=== PATIENT | female | born 1950 | race Caucasian/White ===

== ENCOUNTER 2017-08-30 07:49 | Inpatient (IN) | payer OTHER ==
[2017-08-30] MEDS: SOD CHLORIDE 0.9% 1,000 ML IV ×4 (08:31→21:19)
[2017-08-30 08:34] LABS: ADD MAN DIFF? NO
[2017-08-30 08:35] LABS: WHITE BLOOD COUNT 5.1 10^3/ul (4.8-10.8)
[2017-08-30 08:35] LABS: ABNORMAL IP MESSAGE 1; BASOPHILS % 0.4 % (0.0-2.0); EOSINOPHILS % 0.4 % (0.0-7.0); HEMATOCRIT 17.5 % (37.0-47.0); LYMPHOCYTES # 1.3 10^3/ul (0.8-2.9); LYMPHOCYTES % 25.4 % (15.0-51.0); MEAN CORPUSCULAR HEMOGLOBIN 31.3 pg (29.0-33.0); MEAN CORPUSCULAR HGB CONC 32.6 g/dl (32.0-37.0); MEAN CORPUSCULAR VOLUME 96.2 fl (82.0-101.0); MEAN PLATELET VOLUME 9.9 fl (7.4-10.4); MONOCYTE # 0.4 10^3/ul (0.3-0.9); MONOCYTES % 8.4 % (0.0-11.0); NEUTROPHIL # 3.3 10^3/ul (1.6-7.5); NEUTROPHILS % 64.4 % (39.0-77.0); PLATELET COUNT 181 10^3/UL (140-415); RED BLOOD COUNT 1.82 10^6/ul (4.20-5.40)
[2017-08-30 08:40] LABS: POSITIVE DIFF @See below
[2017-08-30 08:41] LABS: HEMOGLOBIN 5.7 g/dl (12.0-16.0); PATH REVIEW? YES
[2017-08-30 08:55] LABS: ALANINE AMINOTRANSFERASE 25 IU/L (13-69); ALBUMIN 3.2 g/dl (3.3-4.9); ALBUMIN/GLOBULIN RATIO 1.45; ALKALINE PHOSPHATASE 46 IU/L (42-121); ANION GAP 10 (8-16); ASPARTATE AMINO TRANSFERASE 22 IU/L (15-46); BILIRUBIN,INDIRECT 0.1 mg/dl (0-1.1); BILIRUBIN,TOTAL 0.1 mg/dl (0.2-1.3); BLOOD UREA NITROGEN 19 mg/dl (7-20); CALCIUM 8.5 mg/dl (8.4-10.2); CARBON DIOXIDE 28 mmol/L (21-31); CHLORIDE 107 mmol/L (97-110); CREATININE 0.58 mg/dl (0.44-1.00); GLUCOSE 116 mg/dl (70-220); LIPASE 68 U/L (23-300); POTASSIUM 3.7 mmol/L (3.5-5.1); SODIUM 141 mmol/L (135-144); TOTAL PROTEIN 5.4 g/dl (6.1-8.1)
[2017-08-30 09:00] LABS: INR 0.96; PARTIAL THROMBOPLASTIN TIME 24.2 Sec (25.0-35.0); PROTIME 12.9 Sec (11.9-14.9)
[2017-08-30 09:07] LABS: TROPONIN-I < 0.012 ng/ml (0.00-0.12)
[2017-08-30] MEDS ORDERED: ONDANSETRON 4 MG INJ IV (11:30)
[2017-08-30] MEDS ORDERED: NACL 0.9% 3 ML SYG IV (11:30)
[2017-08-30] MEDS: ACETAMINOPHEN 325 MG TAB PO (11:32)
[2017-08-30] MEDS: PANTOPRAZOLE IV 80 MG in SOD CHLORIDE 0.9% 100 ML IVPB (11:51)
[2017-08-30 12:41] LABS: FREE T4 (FREE THYROXINE) 1.37 ng/dl (0.78-2.44)
[2017-08-30] MEDS: PANTOPRAZOLE IV 80 MG in SOD CHLORIDE 0.9% 100 ML IV ×2 (12:58→22:55)
[2017-08-30 14:26] LABS: IMMEDIATE SPIN CROSSMATCH 1 4
[2017-08-30 17:59] LABS: HEMATOCRIT 20.6 % (37.0-47.0)
[2017-08-30 21:09] LABS: ADD MAN DIFF? NO
[2017-08-30 21:11] LABS: ABNORMAL IP MESSAGE 1; BASOPHILS % 0.4 % (0.0-2.0); EOSINOPHILS # 0.1 10^3/ul (0.0-0.5); EOSINOPHILS % 1.6 % (0.0-7.0); HEMATOCRIT 20.7 % (37.0-47.0); LYMPHOCYTES # 1.4 10^3/ul (0.8-2.9); LYMPHOCYTES % 27.6 % (15.0-51.0); MEAN CORPUSCULAR HEMOGLOBIN 30.9 pg (29.0-33.0); MEAN CORPUSCULAR HGB CONC 33.3 g/dl (32.0-37.0); MEAN CORPUSCULAR VOLUME 92.8 fl (82.0-101.0); MEAN PLATELET VOLUME 9.3 fl (7.4-10.4); MONOCYTE # 0.5 10^3/ul (0.3-0.9); MONOCYTES % 9.5 % (0.0-11.0); NEUTROPHIL # 3.1 10^3/ul (1.6-7.5); NEUTROPHILS % 60.3 % (39.0-77.0); PLATELET COUNT 150 10^3/UL (140-415); RED BLOOD COUNT 2.23 10^6/ul (4.20-5.40); RED CELL DISTRIBUTION WIDTH 14.6 % (11.5-14.5)
[2017-08-30 21:11] LABS: WHITE BLOOD COUNT 5.1 10^3/ul (4.8-10.8)
[2017-08-30 21:18] LABS: POSITIVE DIFF @See below
[2017-08-30 21:21] LABS: HEMOGLOBIN 6.9 g/dl (12.0-16.0)
[2017-08-31 05:30] LABS: BASOPHILS % 0.6 % (0.0-2.0); EOSINOPHILS # 0.1 10^3/ul (0.0-0.5); EOSINOPHILS % 1.7 % (0.0-7.0); HEMATOCRIT 26.1 % (37.0-47.0); HEMOGLOBIN 8.8 g/dl (12.0-16.0); LYMPHOCYTES # 1.5 10^3/ul (0.8-2.9); LYMPHOCYTES % 31.7 % (15.0-51.0); MEAN CORPUSCULAR HEMOGLOBIN 30.9 pg (29.0-33.0); MEAN CORPUSCULAR HGB CONC 33.7 g/dl (32.0-37.0); MEAN CORPUSCULAR VOLUME 91.6 fl (82.0-101.0); MEAN PLATELET VOLUME 9.8 fl (7.4-10.4); MONOCYTE # 0.5 10^3/ul (0.3-0.9); MONOCYTES % 9.9 % (0.0-11.0); NEUTROPHIL # 2.6 10^3/ul (1.6-7.5); NEUTROPHILS % 55.5 % (39.0-77.0); NUCLEATED RED BLOOD CELLS% 0.4 /100WBC (0.0-0.0); PLATELET COUNT 155 10^3/UL (140-415); RED BLOOD COUNT 2.85 10^6/ul (4.20-5.40); RED CELL DISTRIBUTION WIDTH 14.8 % (11.5-14.5)
[2017-08-31 05:30] LABS: WHITE BLOOD COUNT 4.7 10^3/ul (4.8-10.8)
[2017-08-31 05:31] LABS: ADD MAN DIFF? NO
[2017-08-31 05:49] LABS: PHOSPHORUS 3.5 mg/dl (2.5-4.9)
[2017-08-31 05:49] LABS: MAGNESIUM 1.8 mg/dl (1.7-2.5)
[2017-08-31] MEDS: POLYETHYLENE GLYCOL 3350 119 GM POWDER PO ×2 (05:57→17:20)
[2017-08-31 05:58] LABS: ALANINE AMINOTRANSFERASE 37 IU/L (13-69); ALBUMIN 2.7 g/dl (3.3-4.9); ALBUMIN/GLOBULIN RATIO 1.35; ALKALINE PHOSPHATASE 40 IU/L (42-121); ANION GAP 7 (8-16); ASPARTATE AMINO TRANSFERASE 27 IU/L (15-46); BILIRUBIN,INDIRECT 0.5 mg/dl (0-1.1); BILIRUBIN,TOTAL 0.5 mg/dl (0.2-1.3); BLOOD UREA NITROGEN 9 mg/dl (7-20); CALCIUM 8.7 mg/dl (8.4-10.2); CARBON DIOXIDE 29 mmol/L (21-31); CHLORIDE 113 mmol/L (97-110); CREATININE 0.55 mg/dl (0.44-1.00); GLUCOSE 98 mg/dl (70-220); POTASSIUM 3.6 mmol/L (3.5-5.1); SODIUM 145 mmol/L (135-144); TOTAL PROTEIN 4.7 g/dl (6.1-8.1)
[2017-08-31 06:03] LABS: INR 1.01; PROTIME 13.4 Sec (11.9-14.9)
[2017-08-31] MEDS: PANTOPRAZOLE IV 80 MG in SOD CHLORIDE 0.9% 100 ML IV ×2 (07:01→15:56)
[2017-08-31] MEDS: SOD CHLORIDE 0.9% 1,000 ML IV ×2 (07:29→17:20)
[2017-08-31] MEDS: BISACODYL (EC) 5 MG TAB PO ×3 (07:30→16:35)
[2017-08-31] MEDS: ACETAMINOPHEN 325 MG TAB PO (07:33)
[2017-08-31] MEDS: MAGNESIUM CITRATE 300 ML BTL PO (16:34)
[2017-09-01] MEDS: PANTOPRAZOLE IV 80 MG in SOD CHLORIDE 0.9% 100 ML IV ×3 (02:47→21:16)
[2017-09-01] MEDS: ACETAMINOPHEN 325 MG TAB PO ×2 (02:47→09:52)
[2017-09-01] MEDS: SOD CHLORIDE 0.9% 1,000 ML IV ×3 (02:49→23:18)
[2017-09-01 05:46] LABS: ADD MAN DIFF? NO
[2017-09-01 06:13] LABS: WHITE BLOOD COUNT 5.2 10^3/ul (4.8-10.8)
[2017-09-01 06:13] LABS: BASOPHILS % 0.4 % (0.0-2.0); EOSINOPHILS # 0.1 10^3/ul (0.0-0.5); EOSINOPHILS % 1.9 % (0.0-7.0); HEMATOCRIT 26.9 % (37.0-47.0); HEMOGLOBIN 9.1 g/dl (12.0-16.0); LYMPHOCYTES # 1.3 10^3/ul (0.8-2.9); LYMPHOCYTES % 25.2 % (15.0-51.0); MEAN CORPUSCULAR HEMOGLOBIN 31.7 pg (29.0-33.0); MEAN CORPUSCULAR HGB CONC 33.8 g/dl (32.0-37.0); MEAN CORPUSCULAR VOLUME 93.7 fl (82.0-101.0); MEAN PLATELET VOLUME 10.4 fl (7.4-10.4); MONOCYTE # 0.5 10^3/ul (0.3-0.9); MONOCYTES % 9.9 % (0.0-11.0); NEUTROPHIL # 3.2 10^3/ul (1.6-7.5); NEUTROPHILS % 62.2 % (39.0-77.0); PLATELET COUNT 180 10^3/UL (140-415); RED BLOOD COUNT 2.87 10^6/ul (4.20-5.40); RED CELL DISTRIBUTION WIDTH 15.1 % (11.5-14.5)
[2017-09-01 06:24] LABS: MAGNESIUM 1.8 mg/dl (1.7-2.5)
[2017-09-01 06:24] LABS: PHOSPHORUS 3.8 mg/dl (2.5-4.9)
[2017-09-01 06:36] LABS: ANION GAP 12 (8-16); BLOOD UREA NITROGEN 6 mg/dl (7-20); CALCIUM 8.7 mg/dl (8.4-10.2); CARBON DIOXIDE 26 mmol/L (21-31); CHLORIDE 110 mmol/L (97-110); CREATININE 0.57 mg/dl (0.44-1.00); GLUCOSE 95 mg/dl (70-220); POTASSIUM 3.6 mmol/L (3.5-5.1); SODIUM 144 mmol/L (135-144)
[2017-09-01 13:00] LABS: IRON 32 ug/dl (35-150)
[2017-09-01 13:10] LABS: % IRON SATURATION 10 % SAT (22-52); TOTAL IRON BINDING CAPACITY 326 ug/dl (241-421)
[2017-09-01 13:25] LABS: FERRITIN 69.1 ng/ml (11.1-264.0)
[2017-09-01] MEDS: LIDOCAINE 2% (SDV) 5 ML INJ (18:32)
[2017-09-01] MEDS: PROPOFOL 40 ML (18:32)
[2017-09-01] MEDS ORDERED: ONDANSETRON 4 MG INJ IV (19:00)
[2017-09-02] MEDS: PANTOPRAZOLE IV 80 MG in SOD CHLORIDE 0.9% 100 ML IV (06:05)
[2017-09-02] MEDS: SOD CHLORIDE 0.9% 1,000 ML IV (06:09)
[2017-09-02 14:49] LABS: ADD MAN DIFF? NO
[2017-09-02 14:52] LABS: WHITE BLOOD COUNT 4.5 10^3/ul (4.8-10.8)
[2017-09-02 14:52] LABS: BASOPHILS % 0.2 % (0.0-2.0); EOSINOPHILS # 0.1 10^3/ul (0.0-0.5); EOSINOPHILS % 1.5 % (0.0-7.0); HEMATOCRIT 27.9 % (37.0-47.0); HEMOGLOBIN 9.4 g/dl (12.0-16.0); LYMPHOCYTES # 1.1 10^3/ul (0.8-2.9); LYMPHOCYTES % 24.7 % (15.0-51.0); MEAN CORPUSCULAR HEMOGLOBIN 31.5 pg (29.0-33.0); MEAN CORPUSCULAR HGB CONC 33.7 g/dl (32.0-37.0); MEAN CORPUSCULAR VOLUME 93.6 fl (82.0-101.0); MEAN PLATELET VOLUME 9.5 fl (7.4-10.4); MONOCYTE # 0.5 10^3/ul (0.3-0.9); MONOCYTES % 9.9 % (0.0-11.0); NEUTROPHIL # 2.9 10^3/ul (1.6-7.5); NEUTROPHILS % 63.5 % (39.0-77.0); PLATELET COUNT 216 10^3/UL (140-415); RED BLOOD COUNT 2.98 10^6/ul (4.20-5.40); RED CELL DISTRIBUTION WIDTH 14.6 % (11.5-14.5)
[2017-09-02 15:18] LABS: ANION GAP 14 (8-16); BLOOD UREA NITROGEN 8 mg/dl (7-20); CALCIUM 8.6 mg/dl (8.4-10.2); CARBON DIOXIDE 22 mmol/L (21-31); CHLORIDE 108 mmol/L (97-110); CREATININE 0.61 mg/dl (0.44-1.00); GLUCOSE 106 mg/dl (70-220); POTASSIUM 3.7 mmol/L (3.5-5.1); SODIUM 140 mmol/L (135-144)
== END 2017-09-02 18:25 | disposition home or self-care (01) | DRG 378 ==
LOC: MS3 16:37 → E/R 07:49 → MS3 09:28 → MS1 09-01 22:40
PROVIDERS: Internal Medicine
PROC: 0DJ08ZZ Inspection of Upper Intestinal Tract, Via Natural or Artificial Opening Endoscopic (ICD-10-PCS; principal; 2017-09-01 17:20)
PROC: 0DBK8ZX Excision of Ascending Colon, Via Natural or Artificial Opening Endoscopic, Diagnostic (ICD-10-PCS; 2017-09-01 17:20)
PROC: 30233N1 Transfusion of Nonautologous Red Blood Cells into Peripheral Vein, Percutaneous Approach (ICD-10-PCS; 2017-09-01 17:20)
DX: K92.1 Melena (principal); D62 Acute posthemorrhagic anemia; Z87.891 Personal history of nicotine dependence; M13.0 Polyarthritis, unspecified; K63.5 Polyp of colon; K57.30 Diverticulosis of large intestine without perforation or abscess without bleeding; K64.8 Other hemorrhoids; K25.9 Gastric ulcer, unspecified as acute or chronic, without hemorrhage or perforation; R55 Syncope and collapse; Z85.72 Personal history of non-Hodgkin lymphomas; T39.315S Adverse effect of propionic acid derivatives, sequela
CPT/HCPCS: 36415; 36430; 70450; 71045; 80048; 80053; 82728; 83036; 83540; 83690; 83735; 84100; 84439; 84443; 84484; 85014; 85018; 85025; 85610; 85730; 86850; 86900; 86901; 86920; 93005; 93306; 96365; 96366; 96376; 99291-25